=== PATIENT | female | born 2000 | race Caucasian/White ===

== ENCOUNTER 2021-08-22 19:59 | Emergency (ER) | payer OTHER ==
--- OUTSIDE RECORDS SUMMARY | 2021-08-22 20:02 | XMS REPORT | Continuity of Care Document ---
:2000 Author Organization [facility] Address [address] [place] [address] Care Team Providers Name Role Phone LIZ Attending Clinician Unavailable SUSANNAH Attending Clinician Unavailable LORENZO VELÁZQUEZ Attending Clinician Unavailable LIZ Admitting Clinician Unavailable Payers Payer Name Policy Type Policy Number Effective Date Expiration Date Tristan [facility] [id number] 2019 00:00:00 Problems This patient has no known problems. Allergies, Adverse Reactions, Alerts Allergy Allergy Status Severity Reaction(s) Onset Inactive Treating Comm ents Source Name Type Date Date Clinician NO KNOWN Drug Active Univers ALLERGIE Class [facility] Medications This patient has no known medications. Procedures This patient has no known procedures. Encounters Start End Encounter Admission Attending Care Care Encounter Source Date/Time Date/Time Type Type Clinicians Facility Department ID 2021-07-04 Emergency [facility] [id number] Univers 23:24:15 [facility] 2021-08-22 2021-08-22 Outpatient ED GUO [id number] 04:44:00 04:44:00 ONOFRE [address] [facility] 2021-05-23 2021-05-23 Outpatient [place] DAVALOS [facility] [id number] Univers 14:45:00 14:45:00 TEENA [id number] [facility] 2021-05-23 2021-05-23 Outpatient [place] DAVALOS [facility] [id number] Univers 14:45:00 14:45:00 TEENA [facility] 2021-05-21 2021-05-21 Outpatient [place]yenne DAVALOS [facility] [id number] Univers 08:30:00 08:30:00 TEENA [id number] [facility] 2021-05-21 2021-05-21 Outpatient R SUSANNAH [facility] [id number] Univers 08:30:00 08:30:00 TEENA ity [facility] 2021-03-18 2021-03-18 Outpatient R SUSANNAH [facility] [id number] Univers 09:30:00 09:30:00 TEENA [id number] ity [facility] 2021-03-18 2021-03-18 Outpatient R SUSANNAH [facility] [id number] Univers 09:30:00 09:30:00 TEENA ity [facility] 2020-06-14 2020-06-14 Outpatient R [facility] [id number] Univers 14:40:00 14:40:00 ity [facility] 2020-06-14 2020-06-14 Outpatient R [facility] [id number] Univers 14:40:00 14:40:00 ity [facility] 2020-05-21 2020-05-21 Outpatient R SUSANNAH [facility] [id number] Univers 09:30:00 09:30:00 TEENA [id number] ity [facility] 2020-05-21 2020-05-21 Outpatient R SUSANNAH [facility] [id number] Univers 09:30:00 09:30:00 TEENA [facility] 2020-05-18 2020-05-18 Outpatient R [facility] [id number] Univers 10:30:00 10:30:00 [id number] ity [facility] 2020-05-18 2020-05-18 Outpatient R [facility] [id number] Univers 10:30:00 10:30:00 ity [facility] 2020-03-16 2020-03-16 Outpatient R VELÁZQUEZEVE [facility] [id number] Univers 16:00:00 16:00:00 ity [facility] 2020-03-16 2020-03-16 Outpatient R VELÁZQUEZEVE [facility] [id number] Univers 16:00:00 16:00:00 ity [facility] 2020-03-15 2020-03-15 Outpatient R VELÁZQUEZEVE [facility] [id number] Univers 13:30:00 13:30:00 ity [facility] 2020-02-13 2020-02-13 Outpatient SUSANNAH [facility] [id number] Univers 15:30:00 15:30:00 TEENA ity [facility] 2020-02-13 2020-02-13 Outpatient R SUSANNAH [facility] [id number] Univers 15:30:00 15:30:00 TEENA [facility] 2020-01-16 2020-01-16 Outpatient R EVE VELÁZQUEZ [facility] [id number] Univers 10:45:00 10:45:00 [id number] [facility] 2020-01-16 Outpatient R EVE VELÁZQUEZ [facility] [id number] Univers 10:45:00 10:45:00 ity [facility] 2019-12-19 2019-12-19 Outpatient R EVE VELÁZQUEZ [facility] [id number] Univers 11:30:00 11:30:00 [id number] [facility] 2019-12-19 2019-12-19 Outpatient R EVE VELÁZQUEZ [facility] [id number] Univers 11:30:00 11:30:00 ity [facility] 2019-11-29 2019-11-29 Outpatient R EVE VELÁZQUEZ [facility] [id number] Univers 13:45:00 13:45:00 [id number] ity [facility] 2019-11-29 2019-11-29 Outpatient R EVE VELÁZQUEZ [facility] [id number] Univers 13:45:00 13:45:00 ity [facility] 2019-11-16 2019-11-16 Outpatient R EVE VELÁZQUEZ [facility] [id number] Univers 10:30:00 10:30:00 ity [facility] Results This patient has no known results.
--- NOTE | 2021-08-22 21:14 | EDPHYS ---
Physician Documentation [facility] Name: Sheryl Rock Age: 21 yrs Sex: Female : 2000 Arrival Date: 08/22/2021 Time: 20:06 Bed 9 Private MD: ED Physician Manoj Jacobo HPI: 08/22 21:11 This 21 yrs old Female presents to ER via Ambulatory with complaints of Toothache. sp3 21:11 21-year-old female with no significant past medical history presents with left right sp3 lower mandibular/teeth pain secondary to dental cavities. Patient is seen her dentist but cannot afford a root canal that she needs. Or last 48 hours she notes foul taste, swelling, and increased pain. There is no difficulty swallowing. Patient also denies fever, upper teeth pain, neck pain, headache, chest pain, shortness of breath, back pain, nausea, vomiting, diarrhea, any other ROS at this time.. 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 - Social history:: Smoking status: Patient denies any tobacco usage or history of. Patient/guardian denies using alcohol. ROS: 21:12 Constitutional: Negative for fever, chills, and weight loss, Eyes: Negative for injury, sp3 pain, redness, and discharge, Neck: Negative for injury, pain, and swelling, Cardiovascular: Negative for chest pain, palpitations, and edema, Respiratory: Negative for shortness of breath, cough, wheezing, and pleuritic chest pain, Abdomen/GI: Negative for abdominal pain, nausea, vomiting, diarrhea, and constipation, Neuro: Negative for headache, weakness, numbness, tingling, and seizure. 21:12 All other systems are negative. Exam: 21:12 Constitutional: This is a well developed, well nourished patient who is awake, alert, sp3 and in no acute distress. Eyes: Pupils equal round and reactive to light, extra-ocular motions intact. Lids and lashes normal. Conjunctiva and sclera are non-icteric and not injected. Cornea within normal limits. Periorbital areas with no swelling, redness, or edema. Neck: Trachea midline, no thyromegaly or masses palpated, and no cervical lymphadenopathy. Supple, full range of motion without nuchal rigidity, or vertebral point tenderness. No Meningismus. Chest/axilla: Normal chest wall appearance and motion. Nontender with no deformity. No lesions are appreciated. Cardiovascular: Regular rate and rhythm with a normal S1 and S2. No gallops, murmurs, or rubs. Normal PMI, no JVD. No pulse deficits. Respiratory: Lungs have equal breath sounds bilaterally, clear to auscultation and percussion. No rales, rhonchi or wheezes noted. No increased work of breathing, no retractions or nasal flaring. 21:12 Head/face: Patient has left lower mandibular swelling and teeth have poor dentition with likely dental abscess possible. There is no trismus or other abnormalities noted.. Vital Signs: 20:44 BP 129 / 78; Pulse 66; Resp 18; Temp 97.9(TE); Pulse Ox 98% on R/A; Weight 79.38 kg; ld1 Height 5 ft. 7 in. (170.18 cm); Pain 10/10; 20:44 Body Mass Index 27.41 (79.38 kg, 170.18 cm) ld1 MDM: 21:10 Patient medically screened. sp3 21:12 Data reviewed: vital signs, nurses notes. ED course: 21-year-old female with likely sp3 mandibular pain secondary to dental caries. Will discharge patient on Augmentin and diclofenac with dental follow-up. I am not suspicious of Homero's angina, sepsis, other infectious etiology at this time.. Administered Medications: No medications were administered Disposition Summary: 08/22/21 21:13 Discharge Ordered Location: Home sp3 Condition: Stable sp3 Diagnosis - Dental caries, mandibular swelling sp3 Followup: sp3 - With: Private Physician - When: Upon discharge from the Emergency Department - Reason: Recheck today's complaints Discharge Instructions: - Discharge Summary Sheet sp3 - Dental Abscess sp3 Forms: - Medication Reconciliation Form sp3 - Thank You Letter sp3 - Antibiotic Education sp3 - Prescription Opioid Use sp3 Prescriptions: - Augmentin 875-125 mg Oral Tablet - take 1 tablet by ORAL route every 12 hours for 10 days; 20 tablet; Refills: 0, sp3 Product Selection Permitted - Diclofenac Sodium 75 mg Oral Tablet Sustained Release - take 1 tablet by ORAL route 2 times per day; 30 tablet; Refills: 0, Product sp3 Selection Permitted Signatures: Jayde Doyle RN RN ld1 Manoj Jacobo MD MD sp3
--- NOTE | 2021-08-22 21:14 | ER ---
Nurse's Notes [facility] Name: Sheryl Rock Age: 21 yrs Sex: Female : 2000 Arrival Date: 08/22/2021 Time: 20:06 Bed 9 Private MD: Diagnosis: Dental caries, mandibular swelling Presentation: 08/22 20:44 Chief complaint: Patient states: I am having really bad tooth pain. Coronavirus screen: ld1 At this time, the client does not indicate any symptoms associated with coronavirus-19. Ebola Screen: No symptoms or risks identified at this time. Initial Sepsis Screen: Does the patient meet any 2 criteria? No. Patient's initial sepsis screen is negative. Does the patient have a suspected source of infection? No. Patient's initial sepsis screen is negative. Risk Assessment: Do you want to hurt yourself or someone else? Patient reports no desire to harm self or others. Onset of symptoms was August 22, 2021. 20:44 Method Of Arrival: Ambulatory ld1 20:44 Acuity: JONNY 4 ld1 Triage Assessment: 20:45 General: Appears in no apparent distress. uncomfortable, Behavior is calm, cooperative, ld1 appropriate for age. Pain: Complains of pain in lower left second molar Pain does not radiate. Pain currently is 10 out of 10 on a pain scale. Quality of pain is described as sharp, shooting, Pain began gradually, Is continuous. EENT: Reports pain in tooth. Neuro: Level of Consciousness is awake, alert, obeys commands, Oriented to person, place, time, situation, Appropriate for age. Cardiovascular: Capillary refill < 3 seconds Patient's skin is warm and dry. Respiratory: Airway is patent Respiratory effort is even, unlabored, Respiratory pattern is regular, symmetrical. GI: Abdomen is flat, non-distended. : No signs and/or symptoms were reported regarding the genitourinary system. Derm: No signs and/or symptoms reported regarding the dermatologic system. Musculoskeletal: No signs and/or symptoms reported regarding the musculoskeletal system. 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 - Social history:: Smoking status: Patient denies any tobacco usage or history of. Patient/guardian denies using alcohol. Screenin:47 Abuse screen: Denies threats or abuse. Denies injuries from another. Nutritional ld1 screening: No deficits noted. Tuberculosis screening: No symptoms or risk factors identified. Fall Risk None identified. Assessment: 20:47 Reassessment: See triage assessment. ld1 Vital Signs: 20:44 BP 129 / 78; Pulse 66; Resp 18; Temp 97.9(TE); Pulse Ox 98% on R/A; Weight 79.38 kg; ld1 Height 5 ft. 7 in. (170.18 cm); Pain 10/10; 20:44 Body Mass Index 27.41 (79.38 kg, 170.18 cm) ld1 ED Course: 20:06 Patient arrived in ED. bp1 20:44 Jayde Doyle, RN is Primary Nurse. ld1 20:45 Triage completed. ld1 20:45 Arm band placed on right wrist. ld1 20:47 Patient has correct armband on for positive identification. Bed in low position. Call ld1 light in reach. Pulse ox on. NIBP on. Door closed. Noise minimized. 20:47 No provider procedures requiring assistance completed. ld1 20:59 Manoj Jacobo MD is Attending Physician. sp3 Administered Medications: No medications were administered Outcome: 21:13 Discharge ordered by . sp3 21:21 Patient left the ED. jh5 Signatures: Vidhya Hall bp1 Jayde Doyle, RN RN ld1 Manoj Jacobo MD MD sp3 Zeinab Cullen RN RN jh5
[2021-08-22 21:38] VITALS: BP 129/78; TEMP 97.9; O2SAT 98
== END 2021-08-22 21:21 | disposition home or self-care (01) ==
LOC: ER 19:59
DX: K02.9 Dental caries, unspecified (principal)
CPT/HCPCS: 99282